=== PATIENT | female | born 1995 | race Two or more races ===

== ENCOUNTER 2018-10-18 08:22 | Emergency (ER) | payer BC ==
[2018-10-18] MEDS ORDERED: PANTOPRAZOLE SODIUM 40 MG VIAL IV ONE (09:15)
[2018-10-18] MEDS ORDERED: SUCRALFATE SUSP 1 GM/10 ML UDCUP PO ONE (09:15)
[2018-10-18] MEDS ORDERED: NORMAL SALINE 1000 ML 1,000 ML IV ONE (09:15)
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
[2018-10-18 09:48] LABS: ABSOLUTE BASOPHILS # (AUTO) 0.1 10^3/uL (0.0-0.2); ABSOLUTE EOSINOPHILS # (AUTO) 0.4 10^3/uL (0.0-0.6); ABSOLUTE MONOCYTES (AUTO) 0.4 10^3/uL (0.1-1.4); ABSOLUTE NEUT (AUTO) 4.5 10^3/uL (1.7-8.2); BASOPHILS % (AUTO) 0.9 % (0-2); HEMOGLOBIN 12.1 g/dL (12.0-15.5); LYMPHOCYTES % (AUTO) 27.1 % (13-45); MEAN CORPUSCULAR HEMOGLOBIN 19.2 pg (27.0-33.4); MEAN CORPUSCULAR HGB CONC 32.7 g/dL (32.0-36.0); MONOCYTES % (AUTO) 5.4 % (3-13); PLATELET COUNT 347 10^3/uL (150-450); RED BLOOD COUNT 6.29 10^6/uL (3.72-5.28); RED CELL DISTRIBUTION WIDTH 16.5 % (11.5-14.0); SEGMENTED NEUTROPHILS % (AUTO) 60.6 % (42-78); TOTAL CELLS COUNTED % (AUTO) 100 %; WHITE BLOOD COUNT 7.4 10^3/uL (4.0-10.5)
[2018-10-18 09:51] LABS: MEAN CORPUSCULAR VOLUME 59 fl (80-97)
[2018-10-18 10:14] LABS: ALANINE AMINOTRANSFERASE 26 U/L (9-52); ALBUMIN 4.7 g/dL (3.5-5.0); ALKALINE PHOSPHATASE 72 U/L (38-126); ANION GAP 12 (5-19); ASPARTATE AMINO TRANSFERASE 27 U/L (14-36); BILIRUBIN,DIRECT 0.2 mg/dL (0.0-0.4); BILIRUBIN,TOTAL 0.7 mg/dL (0.2-1.3); BLOOD UREA NITROGEN 12 mg/dL (7-20); CALCIUM 10.1 mg/dL (8.4-10.2); CARBON DIOXIDE 25 mmol/L (22-30); CHLORIDE 107 mmol/L (98-107); GLUCOSE 87 mg/dL (75-110); POTASSIUM 4.9 mmol/L (3.6-5.0); SODIUM 143.6 mmol/L (137-145); TOTAL PROTEIN 7.9 g/dL (6.3-8.2)
[2018-10-18 10:15] LABS: ACETAMINOPHEN < 10 ug/mL (10-30); ALCOHOL < 10 mg/dL (NONE DETECTED); SALICYLATE < 1.0 mg/dL (2.0-20.0)
--- NOTE | 2018-10-18 10:23 | ER Document Report ---
ED Psych Disorder / Suicide <PRADEEP FINN - Last Filed: 10/18/18 16:24> <YANN PARMAR - Last Filed: 10/18/18 17:33> - General Chief Complaint: Suicidal Ideation Stated Complaint: POSSIBLE OVERDOSE Time Seen by Provider: 10/18/18 09:12 Primary Care Provider: [facility] [Provider Group] - Follow up as needed RENU DAMON PA [Primary Care Provider] - Follow up as needed Notes: Patient is here to be evaluated for suicidal thoughts and overdose of ibuprofen. Patient says that she took between 30 and 40 [id number] 200 mg ibuprofen tablets about 6:30 AM this morning. Patient says that she has been contemplating taking an overdose for short time. Has just started seeing a [facility] last week for her anxiety, but no other mental health diagnoses. She denies any other medications included in the overdose. Has not been nauseated or vomited. Never attempted suicide previously. History of thalassemia minor, but no other medical conditions. Patient has a control implant. Patient is on no regular prescription medications. (YANN PARMAR) - Related Data Allergies/Adverse Reactions: No Known Allergies Allergy (Unverified 10/18/18 08:24) Past Medical History - Social History Smoking Status: Never Smoker Frequency of alcohol use: Occasional Drug Abuse: None Family History: Reviewed & Not Pertinent Patient has suicidal ideation: Yes Patient has homicidal ideation: No - Medical History Medical History: Other - Thalassemia minor Endocrine Medical History: Denies: Hx Diabetes Mellitus Type 2 Psychiatric Medical History: Reports: Hx Anxiety Surgical Hx: Negative <YANN PARMAR - Last Filed: 10/18/18 17:33> Review of Systems <YANN PARMAR - Last Filed: 10/18/18 17:33> - Review of Systems Notes: REVIEW OF SYSTEMS: CONSTITUTIONAL : Denies fever. EENT: Denies eye, ear, nose or mouth or throat pain or other symptoms. CARDIOVASCULAR: Denies chest pain. RESPIRATORY: Denies cough, chest congestion, or shortness of breath. GASTROINTESTINAL: Denies abdominal pain or nausea, vomiting, or diarrhea. GENITOURINARY: Denies difficulty or painful urinating, urinary frequency, blood in urine. MUSCULOSKELETAL: Denies back or neck pain. Denies joint pain or swelling. SKIN: Denies rash or skin lesions. NEUROLOGICAL: Denies LOC or altered mental status. Denies headache. Denies sensory loss or motor deficits. ALL OTHER SYSTEMS REVIEWED AND NEGATIVE. (YANN PARMAR) Physical Exam - Vital signs Interpretation: Normal <YANN PARMAR - Last Filed: 10/18/18 17:33> - Vital signs Vitals: Temp Pulse Resp BP Pulse Ox 98.4 F 73 16 131/84 H 100 10/18/18 08:29 10/18/18 08:29 10/18/18 08:29 10/18/18 08:29 10/18/18 08:29 Notes: PHYSICAL EXAMINATION: GENERAL: Well-appearing, in no acute distress. HEAD: Atraumatic, normocephalic. EYES: Pupils equal round and reactive to light, extraocular movements intact. ENT: oropharynx clear without exudates. Moist mucous membranes. NECK: Normal range of motion, supple. LUNGS: Breath sounds clear and equal bilaterally. HEART: Regular rate and rhythm without murmurs. ABDOMEN: Soft, nontender. No guarding or rebound. No masses. BACK: No tenderness throughout entire back. EXTREMITIES: Normal range of motion without pain. NEUROLOGICAL: Normal speech, normal gait. Normal sensory, motor, and reflex exams. Awake, alert, and oriented x3. Cranial nerves normal. PSYCH: Normal mood, normal affect. SKIN: Warm, dry, no rashes. (YANN PARMAR) Course - Laboratory Result Diagrams: 10/18/18 09:15 10/18/18 09:15 <PRADEEP FINN - Last Filed: 10/18/18 16:24> - Laboratory Result Diagrams: 10/18/18 09:15 10/18/18 09:15 <YANN PARMAR - Last Filed: 10/18/18 17:33> - Re-evaluation Re-evalutation: 10/18/18 10:24 Mental health consult has been requested. Routine labs will be ordered. (YANN PARMAR) - Vital Signs Vital signs: Temp Pulse Resp BP Pulse Ox 98.4 F 73 14 105/70 98 10/18/18 08:29 10/18/18 08:29 10/18/18 17:01 10/18/18 17:01 10/18/18 17:01 - Laboratory Laboratory results interpreted by me: 10/18/18 10/18/18 09:15 09:15 RBC 6.29 H MCV 59 L MCH 19.2 L RDW 16.5 H Salicylates < 1.0 L Acetaminophen < 10 L Discharge <PRADEEP FINN - Last Filed: 10/18/18 16:24> <YANN PARMAR - Last Filed: 10/18/18 17:33> - Discharge Clinical Impression: Depressed Condition: Stable Disposition: HOME, SELF-CARE Additional Instructions: You have been evaluated and assessed at [facility] Emergency Department by both the medical and behavioral health teams after presenting for suicidal gesture and are now deemed appropriate for discharge. While in the ED, you received an initial medical screening, lab work, EKG, medications, direct staff observation, clinical evaluation, physician assessment, and outpatient resources. You were cleared from both services. Mobile crisis resources were provided to you for when these situations arise. You are encouraged to develop positive coping skills through outpatient counseling with Nidia [facility] on a weekly basis. DEPRESSION: Your evaluation reveals that you have mental depression. While symptoms may be vague, they often include disturbance of sleep, fatigue, loss of appetite, and general loss of interest in life. While depression may be a side effect of drugs, or a reaction to a major change in your life, many cases have no known cause. If depression is acute, and related to a major loss in your life, you can expect it to clear completely with time. If you have been depressed a long time, are prone to repeated bouts of depression or low mood, or have been think ing of suicide, get help. Depression can be treated with anti-depressant medication and counselling. Long-term depression will often take a few weeks to clear, even with appropriate medication. Follow-up care is important. SUICIDAL IDEATION: Suicidal ideation is a common medical term for thoughts about suicide, which may be as detailed as a formulated plan, without the suicidal act itself. Although most people who undergo suicidal ideation do not commit suicide, some go on to make suicide attempts. The range of suicidal ideation varies greatly from fleeting to detailed planning, role playing, and unsuccessful attempts. While thoughts about suicide are common, most people do not carry out serious actions to commit suicide. Based upon your evaluation and discussion with you, we do not believe you are currently at risk to act upon your thoughts of suicide. You have agreed to return to the Emergency Department, at any time, if you feel inclined to act upon your suicidal thoughts. FOLLOW-UP CARE: If you have been referred to a physician for follow-up care, call the physicians office for an appointment as you were instructed or within the next two days. If you experience worsening or a significant change in your symptoms, notify the physician immediately or return to the Emergency Department at any time for re-evaluation. Anxiety The physician feels that some of your health problems are being caused by anxiety. Anxiety affects your health in many ways. Anxiety alone can cause palpitations, sweats, chest pains, abdominal pains, shortness of breath, and headaches. It contributes to ulcer disease, high blood pressure, irritable bowel syndrome, and has been shown to cause flare-ups of many other diseases. Anxiety is not a simple disorder to treat. If the anxiety is due to recent life stresses, you may simply need time to "work through" the changes. If the anxiety is due to an underlying unhappiness with yourself or due to psychiatric disturbance, professional help will be needed. Your physician can refer you for further help if needed. Anti-anxiety medication is occasionally given if the stress is acute or if you are having trouble sleeping. Chronic or frequent use of these medications is not a good idea because the body becomes reliant on it, preventing you from dealing with life's normal stresses. Referrals: RENU DAMON PA [Primary Care Provider] - Follow up as needed [facility] [Provider Group] - Follow up as needed
[2018-10-18 10:33] LABS: ANISOCYTOSIS 1+; HYPOCHROMASIA 3+; OVALOCYTES 2+; POIKILOCYTOSIS 2+; SCHISTOCYTES SLIGHT; TARGET CELLS 1+; TEAR DROP CELLS 1+; TOXIC GRANULATION SLIGHT
[2018-10-18 10:34] LABS: PLATELET COMMENT ADEQUATE
[2018-10-18 11:08] LABS: APPEARANCE,URINE CLEAR; BILIRUBIN,URINE NEGATIVE (NEGATIVE); COLOR,URINE STRAW; GLUCOSE, URINE NEGATIVE (NEGATIVE); KETONES,URINE NEGATIVE (NEGATIVE); LEUKOCYTE ESTERASE,URINE NEGATIVE (NEGATIVE); NITRITE,URINE NEGATIVE (NEGATIVE); PROTEIN,URINE NEGATIVE (NEGATIVE); URINE SPECIFIC GRAVITY 1.006; UROBILINOGEN,URINE NEGATIVE mg/dL (<2.0)
[2018-10-18 11:15] LABS: URINE AMPHETAMINES SCREEN NEGATIVE; URINE BARBITURATES SCREEN NEGATIVE; URINE BENZODIAZEPINES SCREEN NEGATIVE; URINE COCAINE SCREEN NEGATIVE; URINE MARIJUANA (THC) SCREEN NEGATIVE; URINE METHADONE SCREEN NEGATIVE; URINE PHENCYCLIDINE SCREEN NEGATIVE
[2018-10-18 17:50] VITALS: BP 109/79
--- NOTE | 2018-10-18 18:50 | PSYCHOLOGICAL NOTE ---
Psych Note - Psych Note Date seen by psych provider: 10/18/18 Time seen by psych provider: 14:00 Psych Note: Reason for consult: SI Contact Permissions: at bedside Patient is a 23 yo female presenting to the ED with her and initially reported taking 20-30 Motrin then increased the amount to 30-40. She is awake, alert, fully oriented, and medically cleared upon arrival. She reports taking 30-40 Motrin in an effort to "just be ill/just be sick enough to not have to deal with work". She denies this was suicide attempt and any prior suicide attempts, denies prior MH dx, NSSI, or IP treatment. 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 Patient wonders if her control implant may be effecting her emotional stability. Provided psycho-education on hormonal effect on emotions and career counseling with her current MH provider whom she just started seeing for anxiety related to work. Patient reports benefit and wants to continue in counseling. Problem solved with patient to find immediate changes that could be made to assist her. relayed that with his recent work changes he can carry their financial responsibilities for a time while she cares for her MH. Patient was given the names of several local temp agencies. Patient is alert and oriented x 4. Mood is "okay" with labile affect eab tearful or laughing/smiling at appropriate times. Patient denies SI, HI, and AV/H, does not appear to be responding to internal stimuli, and no delusions were noted. Conversational speech was WNL for rate, tone, and prosody. Eye contact was well maintained. Thought processes were linear, organized, and rational. Intellectual abilities were estimated within the average range. Attention/concentration was WNL while, insight, judgment, and impulse control were fair. Diagnosis: V62.29 Z56.9 Other Problem Related to Employment Medication recommendations as per psychiatric provider, Dr. Silva are as follows: No medication recommendations at this time Impression/Plan: Patient is a 23 yo female who is extremely dissatisfied at work, did not want to go in today, so reported that she OD on 20, 30, or 40 Motrin in effort to "just be sick enough not to deal". Patient is psychiatrically clear from acute psychiatric services as there is not risk of harm to self aeb patient denies SI or suicide attempt, has no prior suicide attempt, and is willingly engaging in therapy and utilizing her primary support in her . Patient is recommended to discharge to home self-care and follow up with counselor Nidia at [facility] to develop more positive coping skills and make positive employment changes in her life. [facility] attempted to make an appointment for her but was only able to leave a VM message. 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 Patient's will provide additional support and monitoring, sanitize home, and lock/administer medication. Patient was advised on using [facility] and verbalized that she would. Consulted Dr. Colin in the care and treatment of this patient and ED physician who is in agreement with disposition and recommendation.
--- NOTE | 2018-10-19 00:30 | EKG REPORT ---
SEVERITY:- NORMAL ECG - SINUS RHYTHM : Confirmed by: Blanka José MD 19-Oct-2018 00:29:59
[2018-10-19 11:45] LABS: PATH REVIEW PATHOLOGIST REVIEWED
== END 2018-10-18 17:47 | disposition home or self-care (01) ==
LOC: EDBD → ER 08:22
DX: F32.9 Major depressive disorder, single episode, unspecified (principal)
CPT/HCPCS: 93005; 99285; 96361; 96374; 36415; 80307 ×4; 85025; 80053; 81001; 93010; S0164; J7030